=== PATIENT | male | born 1995 | race Caucasian/White ===

== ENCOUNTER 2017-07-27 17:43 | Emergency (ER) | payer OTHER ==
[2017-07-27 18:10] VITALS: BP 124/65
[2017-07-27] MEDS ORDERED: Ibuprofen TAB* 600 MG PO ONE (18:21)
--- NOTE | 2017-07-27 19:11 | UC ---
Maritza Ibarra Emily, scribed for Kavya Tang MD on 07/27/17 at 1823 . Lower Extremity/Ankle HPI - HPI Summary HPI Summary: This patient is a 22 year old M presenting to urgent care with a chief complaint of left and foot heel pain that began yesterday. Pain started when pt was running laterally during a tennis game, pt plays for [employer]" and stomped heel down. The CC is described as sharp. The patient rates the pain 6/ 10 in severity. Symptoms aggravated by ambulation and palpation. No analgesia taken. Patient reports bruising, walking with a limp, and preexisting soreness in L foot. Patient denies ankle pain, knee pain, and hip pain. Pt denies previous injury to this area of his foot. 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 Pt states walking with a limp second to pain. Patients medications reviewed this visit. - History of Current Complaint Chief Complaint: UCLowerExtremity Stated Complaint: L FOOT INJURY Time Seen by Provider: 07/27/17 18:02 Hx Obtained From: Patient Onset/Duration: Sudden Onset, Lasting Days Severity Initially: Moderate Severity Currently: Moderate Pain Intensity: 6 Pain Scale Used: 0-10 Numeric Aggravating Factor(s): Ambulation Alleviating Factor(s): OTC Meds - Allergies/Home Medications Allergies/Adverse Reactions: Allergies Allergy/AdvReac Type Severity Reaction Status Date / Time No Known Allergies Allergy Verified 01/16/17 14:47 Home Medications: Home Medications NK [No Home Medications Reported] 07/27/17 [History Confirmed 07/27/17] PMH/Surg Hx/FS Hx/Imm Hx Previously Healthy: Yes Endocrine History: Diabetes - Negative Neurological History: Seizures - Negative - Surgical History Surgical History: None - Family History Known Family History: Negative: Cardiac Disease, Diabetes - Social History Occupation: Student Lives: Alone Alcohol Use: Rare Substance Use Type: None Smoking Status (MU): Never Smoked Tobacco Review of Systems Skin: Bruising Motor: Other - Positive walking with a limp Musculoskeletal: Other: - Positive L heel pain. Negative L ankle pain, L knee pain, and hip pain All Other Systems Reviewed And Are Negative: Yes Physical Exam Triage Information Reviewed: Yes Appearance: Well-Appearing, No Pain Distress, Well-Nourished Vital Signs: Initial Vital Signs Temp 99.1 F 07/27/17 18:03 Pulse 48 07/27/17 18:03 Resp 18 07/27/17 18:03 BP 124/65 07/27/17 18:03 Pulse Ox 100 07/27/17 18:03 Vital Signs Reviewed: Yes Eye Exam: Normal Eyes: Negative: Discharge ENT Exam: Normal ENT: Positive: Hearing grossly normal Dental Exam: Normal Neck exam: Normal Neck: Positive: Supple, Nontender Respiratory Exam: Normal Respiratory: Positive: No respiratory distress, No accessory muscle use Cardiovascular Exam: Normal Cardiovascular: Positive: Other: - 2+ DP, PT CBT < 2 sec Musculoskeletal Exam: Normal Musculoskeletal: Positive: Other: - + SLE + flex/ext ankle, knee + TTP heel left + great toe extension no pain along achilles Neurological Exam: Normal Neurological: Positive: Other: - + sensation throughout Psychological Exam: Normal Skin: Positive: Other - ecchymosis left heel no open wounds Diagnostics - Radiology Heel XR Radiology Interpretation Completed By: ED Physician - Heel X-Ray read by physician reveals no evidence for fracture. 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 Pt has not taken analgesia. pain with walking. Will check imaging. analgesia. ice. crutches. rest - Differential Dx/Diagnosis Provider Diagnoses: heel contusion Discharge - Discharge Plan Condition: Stable Disposition: HOME Patient Education Materials: Foot Contusion (ED) Referrals: [facility] [Outside] - If Needed No Primary Care Phys,NOPCP [Primary Care Provider] - Additional Instructions: - Okay to alternate ibuprofen (advil, motrin) and tylenol every 3 hours for pain. take with food. do NOT take for more than 4-5 days - wear bindu wrap for comfort and support - apply ice (wrap in a towel) 20minutes a time, 2-3 times a day for swelling - use crutches until you can walk normally without a limp. - the doctor that reviewed your films today did not see any broken bones - the radiologist has not read them yet. the doctor will call you if there is a broken bone that was missed - Follow-up with [facility] or your film printer for monitoring of your healing process The documentation as recorded by the scribe, Day,Irene accurately reflects the service I personally performed and the decisions made by , Kavya Tang MD.
--- NOTE | 2017-07-27 19:19 | RAD ---
Indication: Left ankle pain. 3 views of left ankle demonstrates no fracture. Ankle mortise is intact. IMPRESSION: No fracture of left ankle is noted.
--- NOTE | 2017-07-27 19:20 | RAD ---
Indication: Left heel injury. 2 views of left calcaneus demonstrates no fracture. No other bone or joint abnormality is identified. IMPRESSION: No fracture of the calcaneus is noted.
--- NOTE | 2017-07-28 07:10 | UC ---
Maritza Ibarra Emily, scribed for Kavya Tang MD on 07/27/17 at 2014 . Progress - EKG/XRAY/CT XRAY: Heel X-Ray read by radiologist reveals no fracture of the calcaneus is noted. Physician has read this radiologist report and agrees. - Ankle X-Ray read by radiologist reveals no fracture of left ankle is noted. Physician has read this radiologist report and agrees. The documentation as recorded by the kelsiibMaritza narvaez Emily accurately reflects the service I personally performed and the decisions made by Clyde ha Laura, MD.
== END 2017-07-27 19:28 | disposition home or self-care (01) ==
LOC: UCEAST 17:43
DX: S90.32XA Contusion of left foot, initial encounter (principal); X58.XXXA Exposure to other specified factors, initial encounter; Y93.73 Activity, racquet and hand sports; Y92.838 Other recreation area as the place of occurrence of the external cause
CPT/HCPCS: 99212; A9270-GY; G0463